=== PATIENT | female | born 1940 | race Two or more races ===

== ENCOUNTER 2017-09-16 07:54 | Day surgery (SDC) | payer MEDICARE, OTHER ==
[~2017-09-16 07:54] MED LIST: ASPI81TA2 PO; ATOR10TA PO; BACL10TA PO; CARV12.5 PO; CARV6.252 PO; DONE10TA4 PO; FLUT1DIS3 IH; INSU100C10 SQ; LOSA1TAB39 PO; MECL12.582 PO; MEMA10TA PO; MOME17SP BNOSTRILS; MONT10TA22 PO; SITA1TAB6 PO; SPIR25TA PO; TRAM50TA92 PO; ZOLP10TA2 PO
[2017-09-16] MEDS ORDERED: BUPIVACAINE 0.25% 75 MG/30 ML VIAL ONE (08:49)
[2017-09-16] MEDS ORDERED: IOHEXOL 50 ML IV ONE (08:49)
[2017-09-16] MEDS ORDERED: LIDOCAINE 1% INJ 50 ML MDV IJ ONE (08:50)
[2017-09-16 08:54] LABS: BASOPHILS % (AUTO) 0.2 % (0.0-2.0); EOSINOPHILS # (AUTO) 0.1 /CMM (0.0-0.7); EOSINOPHILS % (AUTO) 1.5 % (0.0-6.0); HEMATOCRIT 29 % (33-45); HEMOGLOBIN 9.6 g/dL (11.5-14.8); LYMPHOCYTES # (AUTO) 2.5 /CMM (0.8-4.8); LYMPHOCYTES % (AUTO) 36.1 % (20.0-44.0); MEAN CORPUSCULAR HEMOGLOBIN 30 PG (26.0-33.0); MEAN CORPUSCULAR HGB CONC 34 g/dl (31.0-36.0); MEAN CORPUSCULAR VOLUME 89 fL (82-100); MONOCYTES # (AUTO) 0.5 /CMM (0.1-1.30); MONOCYTES % (AUTO) 7.4 % (2.0-12.0); NEUTROPHILS # (AUTO) 3.8 /CMM (1.8-8.9); NEUTROPHILS % (AUTO) 54.8 % (43.0-81.0); PLATELET COUNT (AUTO) 280 /CMM (150-450); RDW COEFFICIENT OF VARIATION 14.1 (11.5-15.0); RED BLOOD CELL COUNT(AUTO) 3.23 MIL/uL (4.0-5.2); WHITE BLOOD COUNT (AUTO) 6.9 K/uL (4.3-11.0)
[2017-09-16 09:12] LABS: INR 0.96 (0.87-1.13)
[2017-09-16 09:28] LABS: CALCIUM, SERUM 8.9 mg/dL (8.5-10.1); CARBON DIOXIDE 25 mmol/L (21-32); CREATININE 1.1 mg/dL (0.6-1.3); GLUCOSE 115 mg/dL (74-106); UREA NITROGEN, BLOOD 20 mg/dL (7-18)
[2017-09-16 09:29] LABS: CHLORIDE 108 mmol/L (98-107); POTASSIUM 4.7 mmol/L (3.5-5.1); SODIUM SERUM 140 mmol/L (136-145)
[2017-09-16] MEDS ORDERED: TRIAMCINOLONE ACETONIDE SUSP 40 MG/ML 1 ML ONE (09:41)
== END 2017-09-16 11:16 | disposition home or self-care (01) ==
LOC: DS 07:54
PROVIDERS: ATTEND Anesthesiology
DX: M51.16 Intervertebral disc disorders with radiculopathy, lumbar region (principal); M47.816 Spondylosis without myelopathy or radiculopathy, lumbar region; I25.10 Atherosclerotic heart disease of native coronary artery without angina pectoris; E11.9 Type 2 diabetes mellitus without complications; I50.9 Heart failure, unspecified; E66.9 Obesity, unspecified; J45.909 Unspecified asthma, uncomplicated
CPT/HCPCS: 36415; 62323; 71010; 72020; 80048; 82962 ×2; 85025; 85610; 85730; 93005; A6402 ×2; J2704; J3490 ×2; Q9967; Z7610